=== PATIENT | female | born 1975 | race African-American/Black ===

== ENCOUNTER 2020-12-20 14:11 | Emergency (ER) | payer MEDICAID ==
[~2020-12-20] VITALS: Ht 157.5 cm; Wt 58.5 kg
[~2020-12-20 14:11] MED LIST: AMLO10TA4; HYDR12.529 PO; PHEN100C4
[2020-12-20] MEDS ORDERED: ONDANSETRON HCL 4MG/2ML INJ IV STA (14:40)
[2020-12-20] MEDS ORDERED: SODIUM CHLORIDE 0.9% 1,000 ML IV ONE (14:45)
[2020-12-20 15:26] LABS: EOSINOPHILS % 0.1 % (0.0-5.0); HEMATOCRIT. 43.7 % (36.0-48.0); HEMOGLOBIN. 15.3 g/dL (12.0-16.0); LYMPHOCYTES % 10.9 % (20.0-50.0); MEAN CORPUSCULAR HEMOGLOBIN 33.7 pg (28.0-32.0); MEAN PLATELET VOLUME 7.5 fl (7.4-10.4); MONOCYTES % 5.1 % (2.0-8.0); NEUTROPHILS % 82.9 % (40.0-76.0); PLATELET 350 x1000/uL (130-400); RED BLOOD CELL COUNT 4.55 mill/uL (4.2-5.4); RED CELL DISTRIBUTION WIDTH 14.2 % (11.6-14.6)
[2020-12-20 15:33] LABS: CHLORIDE 115 mEq/L (98-107)
[2020-12-20 15:38] LABS: ETHANOL BLOOD < 10 mg/dL
[2020-12-20 15:45] LABS: HCG SCREEN NEGATIVE
[2020-12-20] MEDS ORDERED: LORAZEPAM 2MG/ML CPJ IV NR (16:30)
[2020-12-20 17:38] LABS: *AMPHETAMINES SCREEN URINE NEGATIVE (NEGATIVE); *BARBITURATES SCREEN URINE NEGATIVE (NEGATIVE); *BENZODIAZEPINES SCREEN URINE NEGATIVE (NEGATIVE); *COCAINE SCREEN URINE NEGATIVE (NEGATIVE)
[2020-12-20 17:39] LABS: METHADONE URINE SCREEN NEGATIVE (NEGATIVE); PHENCYCLIDINE URINE SCREEN NEGATIVE (NEGATIVE)
[2020-12-20] MEDS ORDERED: MORPHINE SULFATE 4 MG/ML CPJ (NOT FOR IM USE) IV NR (17:42)
[2020-12-20] MEDS ORDERED: ONDANSETRON HCL 4MG/2ML INJ IV NR (17:42)
[2020-12-20 17:50] LABS: CANNABINOID URINE SCREEN PRESUMTIVE POSITIVE (NEGATIVE); OPIATES URINE SCREEN PRESUMTIVE POSITIVE (NEGATIVE)
[2020-12-20] MEDS ORDERED: ONDA4TAB5 MT (19:21)
[2020-12-20 20:27] LABS: CLARITY URINE CLOUDY (CLEAR); COLOR URINE YELLOW (YELLOW); KETONES URINE NEGATIVE (NEGATIVE); LEUKOCYTE ESTERASE URINE NEGATIVE (NEGATIVE); NITRITE URINE NEGATIVE (NEGATIVE); OCCULT BLOOD URINE 3+ (NEGATIVE); PROTEIN URINE 3+ (NEGATIVE); SPECIFIC GRAVITY URINE 1.015 (1.005-1.030); UROBILINOGEN URINE 0.2 E.U./dL (0.2-1.0)
[2020-12-21 00:46] VITALS: BP 138/70
== END 2020-12-21 00:46 | disposition home or self-care (01) ==
LOC: ER 14:20
DX: R10.84 Generalized abdominal pain (principal); R11.2 Nausea with vomiting, unspecified; R06.02 Shortness of breath; R06.2 Wheezing; R19.7 Diarrhea, unspecified; R06.00 Dyspnea, unspecified; I10 Essential (primary) hypertension; F12.10 Cannabis abuse, uncomplicated; R56.9 Unspecified convulsions; Z79.899 Other long term (current) drug therapy
CPT/HCPCS: 36415; 71045; 74176; 80053; 80305; 80320; 81003; 83690; 83880; 84484; 84703; 85025; 93005; 96374; 96375; 99285; J2060; J2405; J7030; G0480